=== PATIENT | male | born 1940 | race Caucasian/White ===

== ENCOUNTER → 2016-09-02 | Outpatient (CLI) | payer OTHER, MEDICARE ==
[~2016-09-02] MED LIST: BENA1TAB53 PO; CARV12.52 PO; HYDR12.55 PO; NIFE30TA83 PO; PRLSR20 PO; SENNTAB23 PO; SIMV20TA5 PO; URSO300C4 PO
[2016-09-02 12:16] LABS: BASO % 0.4 %; BASO ABS # 0.02 K/uL (0-0.2); COMPLETE YES; EOS % 3.7 %; IG% 0.2 %; LYMPH ABS # 1.55 K/uL (1.2-3.4); MEAN CORPUSCULAR HEMOGLOBIN 30.6 pg (25-34); MEAN CORPUSCULAR HGB CONC 34.8 g/dl (32-36); MEAN PLATELET VOLUME 10.4 fL (7.4-10.4); MONO % 10.7 %; PLATELET COUNT 213 K/uL (130-400); WHITE BLOOD COUNT 4.85 K/uL (4.8-10.8)
[2016-09-02 12:28] LABS: CHLORIDE 104 mmol/L (98-107); POTASSIUM 3.9 mmol/L (3.5-5.1); SODIUM 140 mmol/L (136-145)
[2016-09-02 13:02] LABS: ALKALINE PHOSPHATASE 127 U/L (45-117); ALT/SGPT 35 U/L (12-78); AST/SGOT 19 U/L (15-37); HDL CHOLESTEROL 43 mg/dl; TRIGLYCERIDES 111 mg/dl (0-150); VERY LOW DENSITY LIPOPROT CALC 22 mg/dl
[2016-09-02 13:25] LABS: CALCIUM 9.5 mg/dl (8.5-10.1)
[2016-09-02 13:29] LABS: CHOLESTEROL/HDL RATIO 3.8; LDL CHOLESTEROL CALCULATED 97 mg/dl
[2016-09-02 14:03] LABS: CHOLESTEROL 161 mg/dl (0-200)
[2016-09-02 14:30] LABS: BLOOD UREA NITROGEN 18 mg/dl (7-18); BUN/CREATININE RATIO 14.9 (10-20); CARBON DIOXIDE 24 mmol/L (21-32); GLUCOSE 89 mg/dl (70-99)
[2016-09-03 11:28] LABS: AFP TUMOR MARKER SERUM 2.1 NG/ML (<6.1)
== END | disposition home or self-care (01) ==
LOC: C.LAB1850 09:54
PROVIDERS: ATTEND Internal Medicine
DX: E78.00 Pure hypercholesterolemia, unspecified (principal); Z12.5 Encounter for screening for malignant neoplasm of prostate; K74.60 Unspecified cirrhosis of liver; Z13.29 Encounter for screening for other suspected endocrine disorder

== ENCOUNTER → 2017-03-06 | Outpatient (CLI) | payer OTHER, MEDICARE ==
[2017-03-06 12:35] LABS: BLOOD UREA NITROGEN 23 mg/dl (7-18); BUN/CREATININE RATIO 17.7 (10-20); CALCIUM 9.2 mg/dl (8.5-10.1); CARBON DIOXIDE 29 mmol/L (21-32); CHLORIDE 106 mmol/L (98-107); CREATININE 1.28 mg/dl (0.60-1.40); GLUCOSE 83 mg/dl (70-99); POTASSIUM 3.8 mmol/L (3.5-5.1); SODIUM 140 mmol/L (136-145)
[2017-03-06 12:39] LABS: ALKALINE PHOSPHATASE 109 U/L (45-117); ALT/SGPT 35 U/L (12-78); AST/SGOT 21 U/L (15-37)
== END | disposition home or self-care (01) ==
LOC: C.LAB1850 09:52
PROVIDERS: ATTEND Internal Medicine
DX: I10 Essential (primary) hypertension (principal)

== ENCOUNTER → 2017-08-26 | Outpatient (CLI) | payer OTHER, MEDICARE ==
[2017-08-26 09:38] LABS: BASO % 0.4 %; BASO ABS # 0.02 K/uL (0-0.2); EOS % 3.4 %; EOS ABS # 0.16 K/uL (0-0.5); HEMATOCRIT 40.4 % (42-52); HEMOGLOBIN 14.1 g/dL (14.0-18.0); IG# 0.01 K/uL (0.00-0.02); LYMPH % 25.8 %; LYMPH ABS # 1.23 K/uL (1.2-3.4); MEAN CELL VOLUME 87.6 fL (80-100); MEAN CORPUSCULAR HEMOGLOBIN 30.6 pg (25-34); MEAN CORPUSCULAR HGB CONC 34.9 g/dl (32-36); MEAN PLATELET VOLUME 9.9 fL (7.4-10.4); MONO % 13.2 %; MONO ABS # 0.63 K/uL (0.11-0.59); NEUT ABS # 2.71 K/uL (1.4-6.5); PLATELET COUNT 190 K/uL (130-400); RED CELL DISTRIBUTION WIDTH CV 13.7 % (11.5-14.5); RED CELL DISTRIBUTION WIDTH SD 43.6 fL (36.4-46.3); WHITE BLOOD COUNT 4.76 K/uL (4.8-10.8)
[2017-08-26 09:52] LABS: ALBUMIN 3.8 gm/dl (3.4-5.0); ALT/SGPT 34 U/L (12-78); AST/SGOT 19 U/L (15-37); BLOOD UREA NITROGEN 19 mg/dl (7-18); CALCIUM 8.7 mg/dl (8.5-10.1); CARBON DIOXIDE 28 mmol/L (21-32); CHOLESTEROL 128 mg/dl (0-200); CREATININE 1.37 mg/dl (0.60-1.40); GLUCOSE 101 mg/dl (70-99); POTASSIUM 3.8 mmol/L (3.5-5.1); SODIUM 140 mmol/L (136-145)
[2017-08-26 10:02] LABS: ALKALINE PHOSPHATASE 86 U/L (45-117); LDL CHOLESTEROL CALCULATED 69 mg/dl; TOTAL PROTEIN 7.6 gm/dl (6.4-8.2)
== END | disposition home or self-care (01) ==
LOC: C.LAB1850 08:30
PROVIDERS: ATTEND Internal Medicine
DX: E78.00 Pure hypercholesterolemia, unspecified (principal); I10 Essential (primary) hypertension